=== PATIENT | female | born 1985 | race Asian ===

== ENCOUNTER 2017-09-20 16:05 | Inpatient (IN) ==
[2017-09-20] MEDS ORDERED: Naloxone 0.4 MG/ML INJ IVP PRN (16:35)
[2017-09-20] MEDS ORDERED: Metoclopramide 10 MG/2 ML VIAL IVP PRN (16:35)
[2017-09-20] MEDS ORDERED: *HR* Nalbuphine 20 MG/ML AMPUL IVP PRN (16:35)
[2017-09-20] MEDS ORDERED: Famotidine 20 MG/2 ML VIAL IVP PRN (16:35)
[2017-09-20 17:01] LABS: Basophils % 0.4 %; Eosinophils # 0.1 K/mcL (0.0-0.6); Eosinophils % 0.9 %; Hematocrit 37.4 % (35.3-44.9); Hemoglobin 12.2 g/dL (11.5-15.4); Immature Granulocytes % 0.7 % (0-4); Immature Platelets 5.3 % (1.1-6.1); Lymphocytes # 2.2 K/mcL (0.6-4.6); Lymphocytes % 23.9 %; Mean Corpuscular HGB Conc 32.6 g/dL (31.6-35.5); Mean Corpuscular Hemoglobin 28.6 pg (28.0-33.3); Mean Corpuscular Volume 87.8 fL (83.0-100.0); Monocytes # 0.7 K/mcL (0.0-1.3); Monocytes % 8.1 %; Platelet Count 217 K/mcL (140-400); Red Blood Count 4.26 M/mcL (3.82-4.97); Red Cell Distribution Width 12.4 % (11.5-14.5)
--- NOTE | 2017-09-20 17:19 | OB/GYN History & Physical ---
Date of Encounter: 09/20/17 Time of Encounter: 17:03 Assessment and Plan (1) 37 weeks gestation of Current visit: Yes Status: Acute admitted for delivery (2) Spontaneous rupture of membranes Current visit: Yes Status: Acute admit for delivery History of Present Illness Chief complaint: Spontaneous Rupture of Membranes HPI: Ms. Murguia is a 31 year old female presents to labor and delivery with complaints of spontaneous rupture of membranes at 1546. Patient is 37w5d. Patient reports fluid to be clear. Patient denies VB. Patient reports +FM and irregular contractions. Patient denies any complications with . Blood type: B+, Rubella: Immune, Hep B: Negative, GBS: Negative. Past Med Surg Social Fam HX - Past Medical History Source: patient Medical history: cancer Psychiatric history: no psych history - Past Surgical History Surgical History: other (left mastectomy) - Social History Smoking Status: Never smoker Smokeless Tobacco Status: No Alcohol use: none Drug use: none Occupational status: employed Current living situation: Home - Independent Activity Level: Independent ambulation Recent Out of Country Travel Within the Last 8 Weeks: No Exposure or Possible Exposure to Illness During Travel: No - Family History Mother Adopted: No Living Status: Still Living Hx Family Cardiac Disorders: No Hx Family Respiratory Disorders: No Hx Family Cancer: No Hx Family GI Disorders: No Hx Family Genitourinary Disorders: No Hx Family Endocrine Disorder: No Hx Family Musculoskeletal Disorders: No Hx Family Neuromuscular Disorders: No Hx Family Neurologic Disorders: No Hx Family HEENT Disorders: No Hx Family Autoimmune Disorders: No Hx Family Reproductive Disorders: No Hx Family Psychosocial Disorders: No Hx Family Medical Disorders: No Obstetrical History - Pregnancies : 1 Para: 0 Term: 0 : 0 Ab's: 0 Livin Medications and Allergies Calcium Carbonate/Vitamin D3 [Calcium 600 + D Tablet] 1 tab PO DAILY 10/14/15 [ History] Vit Calc,Iron,Folic [ Vitamins] 1 each PO DAILY 05/22/16 [ History] 3 Allergy/AdvReac Type Severity Reaction Status Date / Time No Known Allergies Allergy Verified 09/20/17 16:48 Review of System OB - Constitutional Constitutional ROS IM: no fatigue, no fever(s), no headache(s) - Cardiovascular Cardiovascular: no chest pain, no edema, no palpitations, no rapid heart rate, no syncope - Respiratory Respiratory: no dyspnea - Gastrointestinal Gastrointestinal: no abdominal pain, no constipation, no cramping, no diarrhea, no heartburn, no nausea, no vomiting - Genitourinary Genitourinary: no abnormal vaginal bleeding, no dysuria, no flank pain, no urinary urgency, no vaginal odor, no vaginal pruritis Exam - Constitutional Constitutional: well developed, well nourished, no acute distress, average body habitus - HEENT HEENT: Normocephaly, Mucus Membranes Moist - Neck Neck exam: full ROM, supple - Lungs Respiratory exam: CTAB - Cardiovascular Cardiovascular exam: RRR, +S1, +S2 - Abdomen Abdomen: Present: bowel sounds normal, gravid, non tender - Extremities Extremities exam: full ROM, normal capillary refill, normal inspection Deep Tendon Reflex Grade: 2+ Normal - Cervix Dilation: 2 (per RN) Effacement: 60 Station: -1 - Uterus Uterus exam: Present: normal size, normal contour - Anus/Rectum Anus/Rectum: Present: normal perianal skin - Comments Comments: 135 bpm moderate variability +15x15 accels no decels noted. CAt. 1 tracing. Contractions 4-5 min apart. Results Result Diagrams: 09/20/17 16:40 All other labs normal. - VTE Reasons for not Prescribing Prophylaxis: Treatment not Indicated - Low risk for VTE
[2017-09-20 18:06] LABS: Amphetamine Screen,Urine Negative ng/mL (Cutoff=1000); Barbiturate Screen,Urine Negative ng/mL (Cutoff=200); Benzodiazepines Screen,Urine Negative ng/mL (Cutoff=200); Cannabinoid Screen,Urine Negative ng/mL (Cutoff = 50); Cocaine Screen,Urine Negative ng/mL (Cutoff= 300); Opiate Screen,Urine Negative ng/mL (Cutoff=300); Phencyclidine Screen,Urine Negative ng/mL (Cutoff=25)
[2017-09-20] MEDS ORDERED: miSOPROStol 100 MCG TABLET PO STA (20:39)
--- NOTE | 2017-09-20 22:10 | Anesthesia Evaluation PreOp ---
Date of Encounter: 09/20/17 Time of Encounter: 22:08 - Past History Planned Operation: tyler Cardiac History: Denies any Significant Hx Pulmonary History: Denies Any Significant HX HAND REAMER History: Denies Any Significant HX Anesthesia History: No Prior Anesthetic Complications, Past Anesthesia (left mastectomy-breast CA) : Yes (37 plus 5, g1) Alcohol Use: none Drug use: none Medications and Allergies Calcium Carbonate/Vitamin D3 [Calcium 600 + D Tablet] 1 tab PO DAILY 10/14/15 [ History] Vit Calc,Iron,Folic [ Vitamins] 1 each PO DAILY 05/22/16 [ History] 3 Allergy/AdvReac Type Severity Reaction Status Date / Time No Known Allergies Allergy Verified 09/20/17 16:48 - Meds/Allergy Pre-op Review Medications Reviewed: Yes Allergies Reviewed: Yes Beta Blockers on Current Med List: No Anesthesia Results - Labs 09/20/17 16:40 Anesthesia Exam O2 Sat Height 1.7 m Weight 80.3 kg Height: 67 Weight: 80 - HEENT Pupil (Motor): Pupils equal Mallampati: II Teeth: Normal Oral Opening: Greater than 3 - HAND REAMER LOC: Oriented HAND REAMER Motor: Normal RUE, Normal LUE, Normal RLE, Normal LLE, Normal Face HAND REAMER Sensory: Normal: RUE, LUE, RLE, LLE, Face - Cardiac Rhythm: Regular Murmur: None JVD: No Carotid Bruit: No - Pulmonary Breath Sounds: bilateral Clear Respiratory Effort: Symmetrical Anesthesia Assess/Plan ASA Score: 2 Modified Low Scale for Level of Consciousness: Cooperative, oriented, and tranquil Anesthetic Plan: Regional Monitoring Plan: Standard Monitors
[2017-09-20] MEDS: Ondansetron 4 MG/2 ML VIAL IVP PRN (22:14)
[2017-09-21] MEDS ORDERED: Oxytocin 20 units/ LR 1000 mL 20 UNIT/1,000 ML BAG IVC ONE ×2 (02:57→21:19)
[2017-09-21] MEDS: Ringers Solution, Lactated 1,000 ML IVC SCH ×2 (03:04→05:30)
[2017-09-21] MEDS ORDERED: *HR* Ropivacaine/PF 0.2% 10 ML AMPUL ONE (03:44)
[2017-09-21] MEDS ORDERED: *HR* FentaNYL (PF) 100 MCG/2 ML VIAL ONE (03:44)
[2017-09-21] MEDS ORDERED: Epidural Premix (fent/bupiv) 110 ML EP ONE ×2 (03:44→12:46)
[2017-09-21] MEDS ORDERED: *HR* Ropivacaine/PF 0.2% 10 ML AMPUL EP ONE (05:00)
[2017-09-21] MEDS ORDERED: Epidural Premix (fent/bupiv) 110 ML EP SCH (05:00)
[2017-09-21] MEDS ORDERED: EPHEDrine 50 MG/ML VIAL IVP PRN (05:00)
[2017-09-21] MEDS ORDERED: *HR* FentaNYL (PF) 100 MCG/2 ML VIAL EP ONE (05:00)
--- NOTE | 2017-09-21 05:04 | Anesthesia Procedures ---
Date of Encounter: 09/21/17 Time of Encounter: 05:02 Procedures: Anesthesia - Epidural/Spinal Patient ID/Chart reviewed: Yes Patient examined: Yes OB Eval: Gestational age: 37 OB Eval: : 1 OB Eval: Hx Para: 0 OB Eval: Dilated at (cm): 2 OB Eval: Contractions: Non-stressed pattern Consent Obtained: Yes Supplemental Oxygen: None/Room Air Site Prep: Aseptic Technique, 0.5% Chlorhexidine/Alcohol Patient position: upright Local Anesthetic: Lidocaine 1% Amount of Local Anesthetic used: 3 Touhy Needle Gauge: 18 Touhy Needle Depth (cm): 6 Catheter Depth at Skin (cm): 12 Test Dose (1.5% Lido + Epi): Volume given (mls): 3 Test Dose Result: Negative Loading Dose: Fentanyl (mcg): 100 Loading Dose: Other: 6cc 0.2% ropivicaine, 2ml fentanyl Loading Dose Administered: Thru Touhy Needle Infusion Med: 0.125% Bupivacaine w/ 2 mcg/ml Fentanyl Infusion Rate (mls/hr): [address]: Tegaderm Interspace Used: L3-L4 Loss of Resistance (OSCAR): Yes Blood: No CSF: No Paresthesia: No Procedure: Strict asepsis. Failed attempt at L2-3 after several passes. No heme or CSF, just oss. Successful OSCAR at L3-4 after several passes. Again, no heme or CSF, just oss. Needle orientation to achieve OSCAR was approximately 15 degrees to patient's left side. Bolus thru needle, Cathetar to 12cm at skin, taped in place.
--- NOTE | 2017-09-21 05:23 | OB Labor Progress Note ---
Date of Encounter: 09/21/17 Time of Encounter: 05:20 Labor Progress Note - Subjective Subjective: Patient resting comfortably with epidural in place. Discussed POC with patient. Patient denies any questions or concerns. - Cervix Cervix: 3.5/80/-1 - Heart Tones Heart Tones: 115 bpm moderate variability +15x15 accels no decels noted. CAt. 1 tracing. - [place]: 4-4.5 min apart - Interventions Interventions: SVE, IUPC placed without difficulty. Patient tolerated well. - Plan Plan: Continue labor management.
[2017-09-21] MEDS: Ondansetron 4 MG/2 ML VIAL IVP PRN ×2 (05:26→13:24)
--- NOTE | 2017-09-21 14:00 | OB Labor Progress Note ---
Date of Encounter: 09/21/17 Time of Encounter: 13:57 Labor Progress Note - Subjective Subjective: Patient resting comfortably in bed with epidural in place. - Vital Signs Vital Signs: VSS - Cervix Cervix: 5-6/100/0 - Heart Tones Heart Tones: 120 moderate variability and 15 x15 accels. Category I tracing. - [place]: IUPC contractions every 2-4 minutes. Adequate labor - Interventions Interventions: Encourage use peanut ball and frequent position changes. - Plan Plan: Continue routine labor management Epidural providing adequate pain control Encourage frequent position changes and use of peanut ball Continue pitocin infusion titrated for adequate labor. Anticipate vaginal delivery POC per consult with Dr Goodman.
--- NOTE | 2017-09-21 19:09 | OB Labor Progress Note ---
Date of Encounter: 09/21/17 Time of Encounter: 19:06 Labor Progress Note - Subjective Subjective: Pt comfortable with epidural. She feels contractions as vaginal and rectal pressure - Vital Signs Vital Signs: afeb, VSS - Cervix Cervix: ant lip which pushes away with ctx/+2 - Heart Tones Heart Tones: 130s, CAT1 - [place]: ctx q 2-3',50-80 mmHg on pit - Interventions Interventions: 37 wk prolonged SROM w/ pitocin augmentation - Plan Plan: Prep pt for pushing, anticpate
[2017-09-21] MEDS ORDERED: Famotidine 20 MG/2 ML VIAL IVP ONE (19:47)
--- NOTE | 2017-09-21 20:42 | OB/GYN Procedure Note ---
Delivery - Delivery Date: 09/21/17 Provider: Keisha Goodman Intrapartum events: prolonged labor- > = 20hr Delivery induction: none Delivery augmentation: pitocin Delivery monitor: external FHT, external uterine, internal uterine Anesthesia: epidural Estimated Blood Loss: 300 - (s) A Infant Delivery Date: 09/21/17 Infant Delivery Time: 20:06 Presentation: vertex Position: REYNALDO Route of delivery: Gender: Male Viability: Viable Pounds: 6 Ounces: 0 Weight Gram: 2.72 kg at 1 minute: 9 at 5 mins: 9 Shoulder Dystocia: not encountered Placenta: spontaneous, uterine exploration Cord: 3 umbilical vessels - Repair Episiotomy: none Laceration Description: Perineal - 3rd Degree - Complications Delivery complications: none Delivery comments: The patient was complete and pushing with epidural anesthesia with a spontaneous vaginal delivery in the REYNALDO position of a vigorous male infant weighing 6 lbs. 0 oz. with Apgars of 9 at 1 minute and 9 at 5 minutes. Infant was placed on the maternal abdomen. The cord was clamped and cut after pulsations ceased. Cord blood collection not indicated. The placenta was delivered spontaneous and intact. There was a marginal cord insertion. Third- degree perineal laceration was repaired in usual fashion with 3-0 Monocryl first to support the transverse peroneus and interrupted sutures deeply and then with superficial running nonlocking and subcuticular fashion. Estimated blood loss 300 mL, complications none - Disposition Mom disposition: stable in LDR [place] disposition: stable in LDR
[2017-09-21] MEDS ORDERED: Oxytocin 20 units/ LR 1000 mL 20 UNIT/1,000 ML BAG IVC SCH (23:16)
[2017-09-21] MEDS ORDERED: *HR* HYDROcodone/Acet 5/325 mg TABLET PO PRN (23:16)
[2017-09-21] MEDS ORDERED: Measles/Mumps/Rubella Vacc 0.5 ML VIAL SQ PRN (23:16)
[2017-09-21] MEDS ORDERED: Acetaminophen 325 MG TABLET PO PRN (23:16)
[2017-09-22] MEDS: Ibuprofen 600 MG TABLET PO SCH ×3 (00:23→21:30)
[2017-09-22 05:10] LABS: Basophils % 0.3 %; Eosinophils # 0.1 K/mcL (0.0-0.6); Eosinophils % 0.5 %; Hematocrit 31.5 % (35.3-44.9); Immature Granulocytes % 0.5 % (0-4); Lymphocytes # 1.6 K/mcL (0.6-4.6); Lymphocytes % 12.3 %; Mean Corpuscular HGB Conc 33.3 g/dL (31.6-35.5); Mean Corpuscular Hemoglobin 29.3 pg (28.0-33.3); Mean Platelet Volume 11.1 fL (9.4-12.4); Monocytes # 0.9 K/mcL (0.0-1.3); Monocytes % 6.7 %; Neutrophils # 10.5 K/mcL (1.6-8.9); Platelet Count 198 K/mcL (140-400); Red Blood Count 3.58 M/mcL (3.82-4.97); Red Cell Distribution Width 12.4 % (11.5-14.5); Segmented Neutrophils % 79.7 %
[2017-09-22 05:11] LABS: Hemoglobin 10.5 g/dL (11.5-15.4)
[2017-09-22] MEDS: Prenatal Vit/FA 1 EACH TABLET PO SCH (08:08)
--- NOTE | 2017-09-22 10:46 | OB/GYN Progress Note ---
Date of Encounter: 09/22/17 Time of Encounter: 10:44 - Assessment and Plan (1) Vaginal delivery Current Visit: Yes Status: Acute Stable PPD #1,continue current management, , may discharge this evening if desires. Subjective - Subjective Interval history: Pain well managed on po pain medication, pt states left leg remains numb, but able to ambulate. Patient reports: appetite normal, voiding normally, pain well controlled, ambulating normally [place]: doing well Objective - Latest Vital Signs Latest vital signs: Vital Signs Temp Pulse Pulse Resp BP Pulse Ox 09/22/17 08:06 98 F 80 12 99/65 96 09/22/17 03:45 98.0 F 80 14 99/64 96 09/22/17 01:36 16 09/22/17 00:45 16 09/22/17 00:30 98.2 F 85 14 117/81 96 09/21/17 23:36 72 09/21/17 23:30 98.9 F 72 14 119/80 97 Intake and Output 09/21/17 09/22/17 09/22/17 23:59 07:59 15:59 Intake Total 575 / 575 Balance 575 / 575 Intake: Oral 575 / 575 - Exam Lungs: bilateral: normal Chest: Normal S1, Normal S2 Extremities: Present: normal Abdomen: Present: normal appearance, soft Uterus: Present: normal Uterus Position: At Umbilicus Comments: Bilateral pedal pushes equal. - Labs Labs: Laboratory Results - last 24 hr 09/22/17 04:41 WBC 13.2 H RBC 3.58 L Hgb 10.5 L D Hct 31.5 L MCV 88.0 MCH 29.3 MCHC 33.3 RDW 12.4 Plt Count 198 MPV 11.1 Immature Gran % 0.5 Seg Neutrophils % 79.7 Lymphocytes % 12.3 Monocytes % 6.7 Eosinophils % 0.5 Basophils % 0.3 Neutrophils # 10.5 H Lymphocytes # 1.6 Monocytes # 0.9 Eosinophils # 0.1 Basophils # 0.0
[2017-09-22] MEDS ORDERED: Lanolin 7 G OINT...G. TP PRN (13:32)
[2017-09-23] MEDS: Ibuprofen 600 MG TABLET PO SCH (05:24)
[2017-09-23] MEDS: Prenatal Vit/FA 1 EACH TABLET PO SCH (08:18)
[2017-09-23 08:27] VITALS: BP 106/70
--- NOTE | 2017-09-23 12:04 | Discharge Summary ---
Date of Encounter: 09/23/17 Time of Encounter: 12:00 - Discharge Diagnosis (1) Mother currently breast-feeding Priority: Secondary Status: Acute Comments: Pt has seen . She reports her nipple is sore. Will rx bactroban for cracked nipple. (2) Vaginal delivery Priority: Primary Status: Acute Comments: Pt meeting milestones. Discharge home today. - Discharge Medications Prescriptions: Ibuprofen [Motrin] 600 mg PO Q6HR #60 tablet Docusate [Colace] 100 mg PO BID #60 capsule Mupirocin [Bactroban Oint] 1 appl TP BID #1 tube Home Medications: Calcium Carbonate/Vitamin D3 [Calcium 600 + D Tablet] 1 tab PO DAILY 10/14/15 [ History] Vit Calc,Iron,Folic [ Vitamins] 1 each PO DAILY 05/22/16 [ History] Docusate [Colace] 100 mg PO BID #60 capsule 09/23/17 [Rx] Ibuprofen [Motrin] 600 mg PO Q6HR #60 tablet 09/23/17 [Rx] Lanolin [Lansinoh] 1 appl TP TID PRN oint...g. 09/23/17 [Rx] Mupirocin [Bactroban Oint] 1 appl TP BID #1 tube 09/23/17 [Rx] Allergies/Adverse Reactions: 3 Allergy/AdvReac Type Severity Reaction Status Date / Time No Known Allergies Allergy Verified 09/20/17 16:48 Data Procedures and tests throughout hospitalization: Laboratory Tests 09/20/17 09/20/17 09/22/17 16:40 16:40 04:41 WBC 9.1 13.2 H RBC 4.26 3.58 L Hgb 12.2 10.5 L D Hct 37.4 31.5 L MCV 87.8 88.0 MCH 28.6 29.3 MCHC 32.6 33.3 RDW 12.4 12.4 Plt Count 217 198 MPV 11.0 11.1 Immature Gran % 0.7 0.5 Seg Neutrophils % 66.0 79.7 Lymphocytes % 23.9 12.3 Monocytes % 8.1 6.7 Eosinophils % 0.9 0.5 Basophils % 0.4 0.3 Neutrophils # 6.0 10.5 H Lymphocytes # 2.2 1.6 Monocytes # 0.7 0.9 Eosinophils # 0.1 0.1 Basophils # 0.0 0.0 Immature Plt Fraction 5.3 Urine Opiates Screen Negative Ur Barbiturates Screen Negative Ur Phencyclidine Scrn Negative Ur Amphetamines Screen Negative U Benzodiazepines Scrn Negative Urine Cocaine Screen Negative U Marijuana (THC) Screen Negative Date of admission: 09/20/17 16:05 Primary care physician: Ashleigh Arreola CNP Consults: 09/21/17 23:16 Consult to Patternmaker [facility] [CONS] Routine Comment: Vaginal delivery, consult needed Discharging clinician: Kellie Beatty Anticipated date of discharge: 09/23/17 - Patient Status Disposition: Home, Self-Care Condition: Good Functional capacity at discharge: independent ambulation Overall status at discharge: patient is progressing back to baseline - Discharge Instructions Follow Up With: Ashleigh Arreola CNP [Primary Care Provider] - Keisha Goodman MD [Partnered Physician] - - Diet and Activity Activity: increase activity as tolerated Diet: regular diet Hospital Course Reason for admission: active labor Delivery: Episiotomy: none Laceration: 3rd degree Other procedures: none complications: none Discharge diagnosis: IUP at term delivered baby: male Hospital course: - Delivery Date: 09/21/17 Provider: Keisha Goodman Intrapartum events: prolonged labor- > = 20hr Delivery induction: none Delivery augmentation: pitocin Delivery monitor: external FHT, external uterine, internal uterine Anesthesia: epidural Estimated Blood Loss: 300 - (s) A Infant Delivery Date: 09/21/17 Delivery Time: 20:06 Presentation: vertex Position: [place]O Route of delivery: Gender: Male Viability: Viable Pounds: 6 Ounces: 0 Weight Gram: 2.72 kg at 1 minute: 9 at 5 mins: 9 Shoulder Dystocia: not encountered Placenta: spontaneous, uterine exploration Cord: 3 umbilical vessels - Repair Episiotomy: none Laceration Description: Perineal - 3rd Degree - Complications Delivery complications: none - Disposition Mom disposition: home PPD#2 [place] disposition: home with mother, Time Attestation: Total time spent providing and/or coordinating discharge services: Time Spent: Less than 30 minutes Exam - Constitutional Vitals: Temp Pulse Resp BP Pulse Ox 97.6 F 66 16 106/70 96 09/23/17 08:27 09/23/17 08:27 09/23/17 08:27 09/23/17 08:27 09/23/17 08:27 General appearance IM: A&O X 3 - Respiratory Respiratory exam: Present: CTAB - Cardiovascular Cardiovascular exam IM: Present: RRR - GI/Abdominal GI/Abdominal exam IM: soft - Rectal Rectal exam: deferred - External exam: normal external exam Uterine Tone: Firm Uterus Position: At Umbilicus, Right of Midline (pt reports she needs to void) - Extremities Exam Extremities exam IM: Present: normal inspection - Neurological Exam Neurological exam: normal gait, oriented X3 - Psychiatric Additional comments: reports good mood
[2017-09-23] MEDS ORDERED: Benzocaine/Menthol 56 GM AEROSOL SPRAY TP PRN (12:09)
== END 2017-09-23 13:00 | disposition home or self-care (01) | DRG 775 ==
LOC: 1NENULAB → OBSVTOIN 16:05 → 1NENUOBS 09-21 23:28
PROVIDERS: ADMIT Obstetrics & Gynecology; ATTEND Obstetrics & Gynecology